=== PATIENT | male | born 1965 | race Caucasian/White ===

== ENCOUNTER 2023-08-25 08:31 | Emergency (ER) | payer BC ==
[2023-08-25] MEDS ORDERED: Tetracaine 0.5% PF 4 ML BOT ONE (08:35)
[2023-08-25] MEDS ORDERED: Fluorescein Opthalmic Strip ONE (08:35)
[2023-08-25] MEDS ORDERED: Boostrix 0.5 ML (Tdap) VIAL (>/=7 yrs of age) ONE (08:43)
== END 2023-08-25 09:08 | disposition home or self-care (01) ==
LOC: BURERS 08:31
DX: S05.02XA Injury of conjunctiva and corneal abrasion without foreign body, left eye, initial encounter (principal); F17.210 Nicotine dependence, cigarettes, uncomplicated; Y29.XXXA Contact with blunt object, undetermined intent, initial encounter
CPT/HCPCS: 90471; 90715